=== PATIENT | male | born 1980 ===

== ENCOUNTER 2019-12-07 16:25 | Emergency (ER) | payer OTHER ==
[2019-12-07] MEDS ORDERED: Norflex 60 MG/2 ML IM ONE (16:53)
[2019-12-07] MEDS ORDERED: TORAdol 30 mg Injection IM ONE (16:54)
[2019-12-07] MEDS ORDERED: Norflex 60 MG/2 ML ONE (16:57)
[2019-12-07] MEDS ORDERED: TORAdol 30 mg Injection ONE (16:57)
--- NOTE | 2019-12-07 17:00 | ERPHSYRPT ---
- History of Present Illness Time Seen by Provider: 12/07/19 16:44 Source: patient Exam Limitations: no limitations Patient Subjective Stated Complaint: L shoulder pain Triage Nursing Assessment: . Physician History: 39 years old male with history of hypertension, anxiety presented in the ER with chief complaint of left shoulder pain for 1 week. Patient reports he woke up with the pain and is more in the shoulder, dull aching with sharpness at time, moderate intensity, aggravated with moving her head towards the right and better with being still. No swelling or obvious trauma reported. Denies any tingling numbness or weakness of left upper extremity. No chest pain. 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 Has not taken anything for pain at home. Any chest pain palpitations or shortness of breath. No history of coronary artery disease. Allergies/Adverse Reactions: No Known Drug Allergies Allergy (Unverified 12/07/19 16:38) Home Medications: Hydrochlorothiazide 12.5 mg PO DAILY 12/07/19 [History] Lisinopril 10 mg [Zestril 10 MG] 10 mg PO DAILY 12/07/19 [History] Sertraline HCl 50 mg [Zoloft 50 mg Tablet] 50 mg PO DAILY 12/07/19 [History] Hx Tetanus, Diphtheria Vaccination/Date Given: Yes Hx Influenza Vaccination/Date Given: Yes Hx Pneumococcal Vaccination/Date Given: Yes Immunizations Up to Date: Yes Travel Risk - International Travel Have you traveled outside of the country in past 3 weeks: No - Coronavirus Screening Are you exhibiting any of the following symptoms?: No Close contact with a COVID-19 positive Pt in past 14-21 Days: No - Review of Systems Constitutional: No Symptoms Eyes: No Symptoms Ears, Nose, & Throat: No Symptoms Respiratory: No Symptoms Cardiac: No Symptoms Abdominal/Gastrointestinal: Constipation Musculoskeletal: Joint Pain Skin: No Symptoms Neurological: No Symptoms Psychological: No Symptoms Endocrine: No Symptoms Hematologic/Lymphatic: No Symptoms Immunological/Allergic: No Symptoms - Past Medical History Pertinent Past Medical History: Yes Cardiac History: Hypertension Psycho-Social History: Anxiety - Past Surgical History Past Surgical History: Yes Gastrointestinal: Hernia Repair Genitourinary: Other Other Surgical History: R kidney removed - Social History Smoking Status: Never smoker Exposure to second hand smoke: No Drug Use: none Patient Lives Alone: No - Nursing Vital Signs Nursing Vital Signs: Initial Vital Signs Temperature 98.2 F 12/07/19 16:33 Pulse Rate 90 12/07/19 16:33 Respiratory Rate 18 12/07/19 16:33 Blood Pressure 158/107 12/07/19 16:33 O2 Sat by Pulse Oximetry 97 12/07/19 16:33 Pain Scale Pain Intensity 7 - Physical Exam General Appearance: no apparent distress, alert, anxiety Eyes, Ears, Nose, Throat Exam: normal ENT inspection, pharynx normal Neck Exam: normal inspection, non-tender, supple, full range of motion Cardiovascular/Respiratory Exam: chest non-tender, normal breath sounds, regular rate/rhythm Abdominal Exam: non-tender, soft Shoulder Exam: normal inspection, soft tissue tenderness (Tenderness upper trapezius left. Intact range of motion. Intact distal neurovascular.) Wrist Exam: normal inspection Hand Exam: normal inspection DTR - Upper Extremity Exam: bicep (R): 2+, bicep (L): 2+, tricep (R): 2+, tricep (L): 2+ Neuro/Tendon Exam: normal sensation, normal motor functions, normal tendon functions Mental Status Exam: alert, oriented x 3, cooperative Skin Exam: normal color SpO2 Interpretation: normal SpO2: 97 - Course Nursing assessment & vital signs reviewed: Yes Ordered Tests: Active Orders 24 hr Category Date Time Status SHOULDER Stat Exams 12/07/19 17:53 Taken Medication Summary Discontinued Medications Generic Name Dose Route Start Last Admin Trade Name Liorq PRN Reason Stop Dose Admin Ketorolac Tromethamine 30 mg 12/07/19 16:54 12/07/19 16:59 Toradol 30 Mg Injection IM 12/07/19 16:55 30 mg STAT ONE Administration Ketorolac Tromethamine Confirm 12/07/19 16:57 Toradol 30 Mg Injection Administered 12/07/19 16:58 Dose 30 mg .ROUTE .STK-MED ONE Orphenadrine Citrate 60 mg 12/07/19 16:53 12/07/19 16:59 Norflex 60 Mg/2 Ml IM 12/07/19 16:54 60 mg STAT ONE Administration Orphenadrine Citrate Confirm 12/07/19 16:57 Norflex 60 Mg/2 Ml Administered 12/07/19 16:58 Dose 60 mg .ROUTE .STK-MED ONE - Progress Progress: improved Progress Note: he is given Toradol and Norflex, on reevaluation feeling better. X-rays negative for any fracture dislocation. Patient I believe has muscle strain, recommended ibuprofen and Robaxin and outpatient follow-up. Does not seem cardiac but more of a musculoskeletal, reproducible, offered cardiac work-up but patient refused .Discussed signs symptoms of worsening needing return to ER which he seems understanding. 12/07/19 18:04 Counseled pt/family regarding: diagnosis, need for follow-up, rad results - Departure Departure Disposition: Home Clinical Impression: Left shoulder strain Qualifiers: Encounter type: initial encounter Qualified Code(s): S46.912A - Strain of unspecified muscle, fascia and tendon at shoulder and upper arm level, left arm, initial encounter Condition: Stable Critical Care Time: No Referrals: SAWYER GARCIA [Primary Care Provider] - Follow Up with PCP/3 days Instructions: Shoulder Tendinopathy (DC), Shoulder Sprain (DC) Additional Instructions: Take pain medications and muscle relaxants as needed. Follow-up with primary care physician for reevaluation. Return to ER for worsening pain or if as any numbness tingling weakness of left upper extremity are pain is in the chest associated shortness of breath or palpitations. Prescriptions: Ibuprofen 600 mg PO Q6HPRN PRN 10 Days #20 tablet PRN Reason: Pain Methocarbamol [Robaxin-750] 750 mg PO TID 10 Days #30 tablet
[2019-12-07 18:09] VITALS: BP 129/88; PULSE 78; O2SAT 98
--- NOTE | 2019-12-07 22:15 | XRAY ---
Indication: Pain. No known injury. Comparison: None 3 view left shoulder obtained. No bony, articular, or soft tissue abnormalities.
== END 2019-12-07 18:15 | disposition home or self-care (01) ==
LOC: ED 16:25
DX: S46.912A Strain of unspecified muscle, fascia and tendon at shoulder and upper arm level, left arm, initial encounter (principal); I10 Essential (primary) hypertension; F41.9 Anxiety disorder, unspecified; M25.512 Pain in left shoulder; Z79.899 Other long term (current) drug therapy
CPT/HCPCS: 73030; 96372; 99284; J1885; J2360